=== PATIENT | female | born 2005 | race Caucasian/White ===

== ENCOUNTER 2024-12-16 08:20 | Emergency (ER) | payer OTHER ==
--- NOTE | 2024-12-16 08:34 | ERPHSYRPT ---
- History of Present Illness Time Seen by Provider: 12/16/24 08:33 Historian: patient, family Exam Limitations: no limitations Physician History: Pt had onset of Left Flank pain 5 days ago and this has gotten much worse today and is like her kidney stone from 1 year ago, but which was other side and passed on its own. No vomiting. No fever. No trauma. No vag symptoms. Abd soft nontender without peritoneal signs or masses. Chest clear Ht reg without M. Discussed with pt and family risks and benefits of testing/Tx including CBC, CMP, UA, Lipase, Lactate, CT abd , HCG , Toradol/[place] pain med, Zofran, IV, and they wish to proceed so these are ordered. Results discussed with pt and available family. Timing/Duration: day(s) Activities at Onset: none Quality: sharpness, stabbing Abdominal Pain Onset Location: flank Pain Radiation: no radiation Severity of Pain-Max: moderate Severity of Pain-Current: moderate Modifying Factors: Improves With: nothing Associated Symptoms: denies symptoms Previous symptoms: same symptoms as today, no recent treatment Allergies/Adverse Reactions: clindamycin Allergy (Verified 12/16/24 08:33) sulfamethoxazole [From Bactrim] Allergy (Verified 12/16/24 08:33) trimethoprim [From Bactrim] Allergy (Verified 12/16/24 08:33) - Review of Systems Constitutional: No Fever, No Chills Eyes: No Symptoms Ears, Nose, & Throat: No Symptoms Respiratory: No Cough, No Dyspnea Cardiac: No Chest Pain, No Edema, No Syncope Abdominal/Gastrointestinal: Abdominal Pain, No Nausea, No Vomiting, No Diarrhea Genitourinary Symptoms: Flank Pain, No Dysuria Musculoskeletal: No Back Pain, No Neck Pain Skin: No Rash Neurological: No Dizziness, No Focal Weakness, No Sensory Changes Psychological: No Symptoms Endocrine: No Symptoms Hematologic/Lymphatic: No Symptoms Immunological/Allergic: No Symptoms All Other Systems: Reviewed and Negative - Past Medical History Pertinent Past Medical History: Yes GI Medical History: Other (kidney stone last year) - Nursing Vital Signs Nursing Vital Signs: Initial Vital Signs Temperature 97.5 F 12/16/24 08:28 Pulse Rate 121 H 12/16/24 08:28 Blood Pressure 142/93 12/16/24 08:28 O2 Sat by Pulse Oximetry 99 12/16/24 08:28 Pain Scale Pain Intensity 7 - Physical Exam General Appearance: no apparent distress, alert Eye Exam: PERRL/EOMI, eyes nml inspection Ears, Nose, Throat Exam: normal ENT inspection, pharynx normal, moist mucous membranes Neck Exam: normal inspection, non-tender, supple, full range of motion Respiratory Exam: normal breath sounds, lungs clear, No respiratory distress Cardiovascular Exam: regular rate/rhythm, normal heart sounds Gastrointestinal/Abdomen Exam: soft, No tenderness, No mass Back Exam: normal inspection, normal range of motion, No CVA tenderness, No vert ebral tenderness Extremity Exam: normal inspection, normal range of motion, pelvis stable Neurologic Exam: alert, oriented x 3, cooperative, normal mood/affect, nml cerebellar function, sensation nml, No motor deficits Skin Exam: normal color, warm, dry SpO2 Interpretation: normal SpO2: 99 O2 Delivery: Room Air - Course Nursing assessment & vital signs reviewed: Yes - CT Exams Abdomen/Pelvis CT Interpretation: Tele-radiologist Report, Other (bilateral renal stones with left moderate hydronephrosis) Ordered Tests: Active Orders 24 hr Category Date Time Status ABDOMEN AND PELVIS W/0 CONTRAS [CT] Stat Exams 12/16/24 08:38 Completed CBC W DIFF Stat Lab 12/16/24 08:45 Completed CMP Stat Lab 12/16/24 08:45 Completed CULTURE,URINE Stat Lab 12/16/24 08:40 Received HCG QUALITATIVE, SERUM Stat Lab 12/16/24 08:45 Completed LIPASE Stat Lab 12/16/24 08:45 Completed Lactic Acid Stat Lab 12/16/24 08:37 Completed UA W/RFX UR CULTURE Stat Lab 12/16/24 08:40 Completed Medication Summary Discontinued Medications Generic Name Dose Route Start Last Admin Trade Name Chelo PRN Reason Stop Dose Admin Ketorolac Tromethamine 60 mg 12/16/24 08:40 12/16/24 08:55 Ketorolac Tromethamine 30 Mg/Ml Inj IM 12/16/24 08:41 Not Given STAT ONE Ketorolac Tromethamine 30 mg 12/16/24 08:53 12/16/24 08:54 Ketorolac Tromethamine 30 Mg/Ml Inj IV 12/16/24 08:54 30 mg STAT ONE Administration Ketorolac Tromethamine Confirm 12/16/24 08:54 Ketorolac Tromethamine 30 Mg/Ml Inj Administered 12/16/24 08:55 Dose 30 mg .ROUTE .STK-MED ONE Ondansetron HCl 4 mg 12/16/24 08:55 12/16/24 08:57 Ondansetron Hcl 4 Mg/2 Ml Vial IV 12/16/24 08:56 4 mg STAT ONE Administration Ondansetron HCl Confirm 12/16/24 08:55 Ondansetron Hcl 4 Mg/2 Ml Vial Administered 12/16/24 08:56 Dose 4 mg .ROUTE .STK-MED ONE Lab/Rad Data: Laboratory Result Diagrams 12/16/24 08:45 12/16/24 08:45 Laboratory Results 12/16/24 12/16/24 12/16/24 Range/Units 08:45 08:45 08:45 WBC 13.7 H (3.98-10.04) x10^3/uL RBC 5.04 (3.93-5.22) x10^6/uL Hgb 14.3 (11.2-15.7) g/dL Hct 41.9 (34.1-44.9) % MCV 83.1 (79.4-94.8) fL MCH 28.4 (25.6-32.2) pg MCHC 34.1 (32.2-35.5) g/dL RDW 12.0 (11.7-14.4) % Plt Count 362 (182-369) x10^3/uL MPV 9.2 L (9.4-12.3) fL Gran % 88.5 H (34.0-71.1) % Immature Gran % (Auto) 0.3 (0.001-0.429) % Nucleat RBC Rel Count 0.0 (0.00-0.2) % Eos # (Auto) 0 L (0.04-0.36) x10^3/uL Immature Gran # (Auto) 0.04 H (0.001-0.031) x10^3u/L Absolute Lymphs (auto) 0.69 L (1.18-3.74) x10^3/uL Absolute Monos (auto) 0.84 (0.24-0.86) x10^3/uL Absolute Nucleated RBC 0.00 (0.00-0.012) x10^3u/L Lymphocytes % 5.0 L (19.3-51.7) % Monocytes % 6.1 (4.7-12.5) % Eosinophils % 0.0 L (0.7-5.8) % Basophils % 0.1 (0.1-1.2) % Absolute Granulocytes 12.16 H (1.56-6.13) x10^3/uL Basophils # 0.01 (0.01-0.08) x10^3/uL Sodium 141 (135-145) mmol/L Potassium 3.9 (3.5-5.1) mmol/L Chloride 106 (98-107) mmol/L Carbon Dioxide 25 (22-30) mmol/L Anion Gap 14.0 (5-15) MEQ/L BUN 16 (7-17) mg/dL Creatinine 1.16 H (0.52-1.04) mg/dL Estimated GFR 69.2 ML/MIN Glucose 117 H (74-106) mg/dL Lactic Acid (0.4-2.0) Calcium 9.8 (8.4-10.2) mg/dL Total Bilirubin 0.70 (0.2-1.3) mg/dL AST 31 (14-36) U/L ALT 20 (0-35) U/L Alkaline Phosphatase 71 (38-126) U/L Serum Total Protein 8.0 (6.3-8.2) g/dL Albumin 5.0 (3.5-5.0) g/dL Lipase 78 (23-300) U/L Serum HCG, Qual NEGATIVE (NEGATIVE) Urine Color (Yellow) Urine Appearance (Clear) Urine pH (4.6-8.0) Ur Specific [place] (1.005-1.030) Urine Protein (Negative) Urine Glucose (UA) (Negative) mg/dL Urine Ketones (Negative) Urine Blood (Negative) Urine Nitrite (Negative) Urine Bilirubin (Negative) Urine Urobilinogen (0.2) mg/dL Ur Leukocyte Esterase (Negative) U Hyaline Cast (Auto) (0-2) /LPF Urine Microscopic RBC (0-5) /HPF Urine Microscopic WBC (0-5) /HPF Ur Epithelial Cells (None Seen) /HPF Urine Bacteria (None Seen) /HPF Urine Culture Reflexed (NO) 12/16/24 12/16/24 Range/Units 08:40 08:37 WBC (3.98-10.04) x10^3/uL RBC (3.93-5.22) x10^6/uL Hgb (11.2-15.7) g/dL Hct (34.1-44.9) % MCV (79.4-94.8) fL MCH (25.6-32.2) pg MCHC (32.2-35.5) g/dL RDW (11.7-14.4) % Plt Count (182-369) x10^3/uL MPV (9.4-12.3) fL Gran % (34.0-71.1) % Immature Gran % (Auto) (0.001-0.429) % Nucleat RBC Rel Count (0.00-0.2) % Eos # (Auto) (0.04-0.36) x10^3/uL Immature Gran # (Auto) (0.001-0.031) x10^3u/L Absolute Lymphs (auto) (1.18-3.74) x10^3/uL Absolute Monos (auto) (0.24-0.86) x10^3/uL Absolute Nucleated RBC (0.00-0.012) x10^3u/L Lymphocytes % (19.3-51.7) % Monocytes % (4.7-12.5) % Eosinophils % (0.7-5.8) % Basophils % (0.1-1.2) % Absolute Granulocytes (1.56-6.13) x10^3/uL Basophils # (0.01-0.08) x10^3/uL Sodium (135-145) mmol/L Potassium (3.5-5.1) mmol/L Chloride (98-107) mmol/L Carbon Dioxide (22-30) mmol/L Anion Gap (5-15) MEQ/L BUN (7-17) mg/dL Creatinine (0.52-1.04) mg/dL Estimated GFR ML/MIN Glucose (74-106) mg/dL Lactic Acid 1.3 (0.4-2.0) Calcium (8.4-10.2) mg/dL Total Bilirubin (0.2-1.3) mg/dL AST (14-36) U/L ALT (0-35) U/L Alkaline Phosphatase (38-126) U/L Serum Total Protein (6.3-8.2) g/dL Albumin (3.5-5.0) g/dL Lipase (23-300) U/L Serum HCG, Qual (NEGATIVE) Urine Color Yellow (Yellow) Urine Appearance Clear (Clear) Urine pH 7.5 (4.6-8.0) Ur Specific [place] 1.020 (1.005-1.030) Urine Protein Trace A (Negative) Urine Glucose (UA) Negative (Negative) mg/dL Urine Ketones 15 A (Negative) Urine Blood Moderate A (Negative) Urine Nitrite Negative (Negative) Urine Bilirubin Negative (Negative) Urine Urobilinogen 1.0 A (0.2) mg/dL Ur Leukocyte Esterase Small A (Negative) U Hyaline Cast (Auto) 3-5 A (0-2) /LPF Urine Microscopic RBC >100 A (0-5) /HPF Urine Microscopic WBC 11-20 A (0-5) /HPF Ur Epithelial Cells Few (None Seen) /HPF Urine Bacteria Rare A (None Seen) /HPF Urine Culture Reflexed YES (NO) - Progress Progress: improved, re-examined Progress Note: 12/16/24 10:12 pt had good pain relief with toradol. discussed risk/benefit of ab keflex with pt for some signs of infection in UA and they wish to proceed . Discussed with pt and family that although this fits kidney stone there still can be other conditions developing undetected and followup is important with your and they chose to do this oupt without furhter intervention in ER/hospital and have the capacity to make this choice. 12/16/24 11:46 Counseled pt/family regarding: lab results, diagnosis, need for follow-up, rad results Medical Desision Making - Independent Historian Additional History obtained from: Family - Discussion of managment Reviewed:: Test results, Need for additional workup Agreed on:: Treatment plan, need for follow-up - Diagnostic Testing Diagnostic test were ordered, analyzed, and reviewed by me: Yes Radiological Interpretation: Teleradiologist Report - Risk of complications The pt has a mod risk of morbidity or mortality based on: Need for prescription drug management - Departure Departure Disposition: Home Clinical Impression: Flank pain, Renal and ureteric calculus, Elevated serum creatinine, UTI (urinary tract infection) Condition: Good Critical Care Time: No Referrals: DOCTOR,NO FAMILY [Primary Care Provider] - Follow up/PCP as directed Instructions: Kidney Stones (DC), Flank Pain, Urinary tract infection in adults - ED discharge instructions Additional Instructions: Followup with your Dr. for your blood pressure which had an elevated reading. Also followup to retest urine since there is blood and white cells in the urine, and to followup on the slightly elevated creatinine renal function. Strain urine for stones and followup to reduce future stones risk. Return meantime if not improving, increased pain, vomiting, fever , or other symptoms of concern. Prescriptions: Hydrocodone/Acetaminophen [Hydrocodone-Acetamin 5-325 mg] 1 tab PO Q6HPRN PRN #7 tablet MDD 4 PRN Reason: Pain Cephalexin Mh 500 mg [Keflex 500 mg] 500 mg PO TID 7 Days #21 cap
[2024-12-16 08:36] VITALS: PULSE 121; TEMP 97.5
[2024-12-16 08:52] LABS: Absolute Neutrophil Ct (ANC) 12.16 x10^3/uL (1.56-6.13); BASOPHIL % 0.1 % (0.1-1.2); Basophil (Absolute #) 0.01 x10^3/uL (0.01-0.08); Eosinophil (Absolute #) 0 x10^3/uL (0.04-0.36); Hematocrit 41.9 % (34.1-44.9); Hemoglobin 14.3 g/dL (11.2-15.7); IMMATURE GRAN # 0.04 x10^3u/L (0.001-0.031); IMMATURE GRAN % 0.3 % (0.001-0.429); Lymphocyte (Absolute #) 0.69 x10^3/uL (1.18-3.74); Mean Cell Volume 83.1 fL (79.4-94.8); Mean Corpuscular Hemoglobin 28.4 pg (25.6-32.2); Mean Corpuscular Hgb Concent. 34.1 g/dL (32.2-35.5); Mean Platelet Volume 9.2 fL (9.4-12.3); Monocyte (Absolute #) 0.84 x10^3/uL (0.24-0.86); Monocytes % 6.1 % (4.7-12.5); Neutrophil % 88.5 % (34.0-71.1); Platelet Count 362 x10^3/uL (182-369); Red Blood Count 5.04 x10^6/uL (3.93-5.22); White Blood Count 13.7 x10^3/uL (3.98-10.04)
[2024-12-16] MEDS: TORAdol 30 mg Injection IV ONE (08:54)
[2024-12-16] MEDS ORDERED: TORAdol 30 mg Injection ONE (08:54)
[2024-12-16] MEDS ORDERED: Zofran 4 MG/2 ML VIAL ONE (08:55)
[2024-12-16] MEDS: TORAdol 30 mg Injection IM ONE (08:55)
[2024-12-16] MEDS: Zofran 4 MG/2 ML VIAL IV ONE (08:57)
[2024-12-16 09:00] LABS: Appearance Clear (Clear); Bacteria Rare /HPF (None Seen); Bilirubin Negative (Negative); Blood Moderate (Negative); Epithelial Cells Few /HPF (None Seen); Glucose, Urine Negative (Negative); Ketones 15 (Negative); Leukocyte Esterase Small (Negative); Nitrite Negative (Negative); Ph 7.5 (4.6-8.0); Protein,Urine Dip Trace (Negative); RBC >100 /HPF (0-5)
[2024-12-16 09:06] LABS: HCG SERUM TEST NEGATIVE (NEGATIVE)
[2024-12-16 09:07] LABS: BILIRUBIN,TOTAL 0.7 mg/dL (0.2-1.3); Calcium 9.8 mg/dL (8.4-10.2); Creatinine 1 1.16 mg/dL (0.52-1.04); EST GLOMERULAR FILTRATION RATE 69.2 ML/MIN; Potassium 3.9 mmol/L (3.5-5.1)
--- NOTE | 2024-12-16 10:22 | XRAY ---
CLINICAL HISTORY: left flank pain COMPARISON: No prior studies available for comparison. TECHNIQUE: Non-contrast CT of the abdomen and pelvis was performed, with the following protocol: axial images, and reconstructed coronal and sagittal images. One of the following dose reduction techniques was utilized for this exam: Automated exposure control, adjustment of the mA and/or kV according to patient size, and use of iterative reconstruction. FINDINGS: Mildly prominent pelvicalyceal system/hydronephrosis with prominent/mildly dilated proximal and mid ureter, however, distal ureter could not be traced completely. A tiny radiopacity measuring 2.5x2.3mm, a mean density of 530 HU was seen at the anatomical site of the distal part of the Ureter/ left vesicoureteric junction, Imaging differentials include tiny calculus versus phlebolith, advised clinical correlation and follow-up Abdomen: Liver: Mildly enlarged in size measuring 17 cm, shape, and density. No focal lesions, cysts, or masses were identified. Gallbladder and Biliary System: The gallbladder is normal in size and shape. No wall thickening, pericholecystic fluid, or gallstones were identified. Pancreas: Pancreatic head, body, and tail are visualized and appear normal in size and density. No pancreatic masses or calcifications were noted. Spleen: Normal in size, shape, and density. No splenic lesions or masses were identified. Appendix: The appendix is normal in size without sang appendiceal fat stranding and without an appendicolith. No evidence of appendiceal abscess or perforation. Kidneys and Adrenal Glands: Right non-obstructing gravels, the largest measuring 1.7mm Both kidneys are normal in size, shape, and position. Cortical thickness is within normal limits. No left renal calculi No right hydronephrosis. Adrenal glands are unremarkable. Abdominal Aorta and Vessels: The abdominal aorta and major branches are patent without evidence of an aneurysm or significant atherosclerosis. Pelvis: Urinary Bladder: Normal in contour and wall thickness. No intraluminal lesions. Uterus and bilateral adnexa are within normal limits. Peritoneal and Retroperitoneal Structures: Few enlarged mesenteric lymph nodes, the largest measuring 16.5x12.6mm, likely reactive. No free fluid or abnormal fluid collections were identified within the abdomen or pelvis. Bowel: The visualized bowel loops are normal in caliber and appearance. No evidence of bowel obstruction or wall thickening. Bones and Soft Tissues: Pelvic bones and soft tissues are unremarkable. No fractures or abnormal masses were identified. IMPRESSION: 1. Mildly prominent pelvicalyceal system/hydronephrosis with prominent/mildly dilated proximal and mid ureter, however, distal ureter could not be traced completely. 2. A tiny radiopacity measuring 2.5x2.3mm, a mean density of 530 HU was seen at the anatomical site of the distal part of the Ureter/ left vesicoureteric junction, Imaging differentials include tiny calculus versus phlebolith, advised clinical correlation and follow-up. 3. Right non-obstructing calculi, the largest measuring 1.7mm. 4. Few enlarged mesenteric lymph nodes, the largest measuring 16.5x12.6mm, likely reactive. 5. Mild hepatomegaly. Electronically Signed by: Noa Marinelli MD. (12/16/2024 10:17:45 EST)
[2024-12-16 11:31] VITALS: O2SAT 99
[2024-12-16 12:15] VITALS: BP 132/83
== END 2024-12-16 12:20 | disposition home or self-care (01) ==
LOC: ED 08:20
DX: R10.9 Unspecified abdominal pain (principal); N20.2 Calculus of kidney with calculus of ureter; R79.89 Other specified abnormal findings of blood chemistry; N39.0 Urinary tract infection, site not specified; Z79.891 Long term (current) use of opiate analgesic; Z79.899 Other long term (current) drug therapy; Z87.442 Personal history of urinary calculi
CPT/HCPCS: 36415; 74176; 80053; 81001; 83605; 83690; 84703; 85025; 87086; 96374; 96375; 99284; J1885; J2405